=== PATIENT | male | born 1950 | race Caucasian/White ===

== ENCOUNTER → 2020-11-29 | Day surgery (SDC) | payer MEDICARE ==
[2020-11-23 11:59] LABS: BASOPHILS # (AUTO) 0.1 X10'3 (0-0.2); BASOPHILS % (AUTO) 0.8 % (0-1); EOSINOPHILS # (AUTO) 0.3 X10'3 (0-0.9); EOSINOPHILS % (AUTO) 3.7 % (0-6); LYMPHOCYTES % (AUTO) 24.9 % (21-51); MEAN CORPUSCULAR HEMOGLOBIN 30.2 PG (27.0-31.0); MEAN CORPUSCULAR HGB CONC 33.5 g/dL (33.0-36.5); MEAN CORPUSCULAR VOLUME 90.3 FL (78-98); MEAN PLATELET VOLUME 9.1 FL (7.4-10.4); MONOCYTES # (AUTO) 0.7 X10'3 (0-0.9); MONOCYTES % (AUTO) 8.9 % (2-12); NEUTROPHILS % (AUTO) 61.7 % (42-75); PRE OP HEMATOCRIT 41.9 % (42.0-52.0); PRE OP PLATELET COUNT 205 X10'3 (140-440); RED BLOOD COUNT 4.64 X10'6 (4.70-6.10); RED CELL DISTRIBUTION WIDTH 12.7 % (11.5-14.5)
[2020-11-23 12:09] LABS: ALBUMIN 3.3 G/DL (3.4-5.0); ALBUMIN/GLOBULIN RATIO 0.9 (1.1-1.5); ALKALINE PHOSPHATASE 85 IU/L (46-116); BLOOD UREA NITROGEN 12 MG/DL (7-18); BUN/CREATININE RATIO 12.8 (5.4-32.0); CALCIUM 8.2 MG/DL (8.5-10.1); CHLORIDE 102 MMOL/L (99-107); CREATININE 0.94 MG/DL (0.60-1.10); PRE OP ALT 25 U/L (30-65); PRE OP ANION GAP 6 (8-16); PRE OP AST 16 U/L (10-37); PRE OP BILIRUB, TOTAL 0.4 MG/DL (0.0-1.0); PRE OP GLUCOSE 101 MG/DL (70-104); PRE OP POTASSIUM 4.4 MMOL/L (3.4-5.1); PRE OP SODIUM 135 MMOL/L (135-145); TOTAL CARBON DIOXIDE 27.1 MMOL/L (24-32); TOTAL PROTEIN 6.8 G/DL (6.4-8.2); eGFR 80 ML/MIN
[~2020-11-29] VITALS: Ht 185.4 cm; Wt 157.1 kg
[2020-11-29] VITALS (9 sets, daily range): BP systolic 144–163; BP diastolic 70–88
[~2020-11-29] MED LIST: ACET-1025 PO; BETA1TAB19 PO; FLO0.4C; HYDROcodone/acetaminophen 10/325mg tab PO PRN; IBUP-75 PO; LIDOcaine 2% (20mg/ml) 5ml vial ONE; OMEP40CA21 PO; ROPIVAcaine 0.2% (10 MG/5 ML) BOLUS INJECTION INTERSCALE PRN; ROPIVAcaine 0.2%/PF PUMP/bolus 545 ML INTERSCALE SCH; ROPIVAcaine 0.5% (5mg/ml) 30ml vial ONE; ceFAZolin inj. 3,000 MG in normal saline 100ml IV soln 100 ML IV ONE; dexamethasone sod phosphate 4mg/ml inj. ONE; ePHEDrine 50MG/ML INJ. ONE; famotidine 20mg tablet PO ONE; fentaNYL/PF 50MCG/1 ML 2ML syringe IV PRN; fentaNYL/PF 50MCG/1 ML 2ML syringe ONE; hydrALAZINE 20mg/ml inj. IV PRN; labetalol 20mg/4ml (5mg/ml) syringe IV PRN; midazolam 1 mg/ML 2ml injection ONE; morphine 2 MG/ML inj. syringe IV PRN; morphine 4 MG/ML inj SYRINge IV PRN; ondansetron/PF 4mg/2ml inj IV PRN; ondansetron/PF 4mg/2ml inj ONE; propofol inj 20 ML IV ONE; ringers solution, lacted 1,000 ML IV SCH; sevoflurane 250ml liquid IH ONE; succinylcholine 20mg/ml inj IV ONE
--- NOTE | 2020-11-29 09:46 | NUR ---
Received from OR via [facility] IN STABLE CONDITION , accompanied by Anesthesiologist and AIRPLANE GASTANK LINER ASSEMBLER report given by AIRPLANE GASTANK LINER ASSEMBLER AND Anesthesiolgist. Addendum: 11/29/20 at 1025 by Gretta Alejandra RN Amended: Links added.
--- NOTE | 2020-11-29 11:16 | NUR ---
PATIENT DISCHARGED HOME FROM PACU IN STABLE CONDITION AFTER WRITTEN AND VERBAL DISCHARGE INSRUCTIONS GIVEN. PATIENT GAVE VERBAL UNDERSTANDING OF INSTRUCTIONS GIVEN. PATIENT LEFT FACILITY IN WHEELCHAIR WITH RN. Addendum: 11/29/20 at 1150 by Gretta Alejandra RN Amended: Links added.
== END | disposition home or self-care (01) ==
LOC: PAS 05:31
PROVIDERS: ATTEND Orthopaedic Surgery
DX: M75.122 Complete rotator cuff tear or rupture of left shoulder, not specified as traumatic (principal); S46.212A Strain of muscle, fascia and tendon of other parts of biceps, left arm, initial encounter; M75.52 Bursitis of left shoulder; G89.18 Other acute postprocedural pain; N40.0 Benign prostatic hyperplasia without lower urinary tract symptoms; K21.9 Gastro-esophageal reflux disease without esophagitis; E66.01 Morbid (severe) obesity due to excess calories; Z68.42 Body mass index [BMI] 45.0-49.9, adult; Z20.822 Contact with and (suspected) exposure to COVID-19; Z79.899 Other long term (current) drug therapy; Z87.891 Personal history of nicotine dependence; Z72.89 Other problems related to lifestyle; Z96.651 Presence of right artificial knee joint; Z98.890 Other specified postprocedural states; X58.XXXA Exposure to other specified factors, initial encounter; Y93.9 Activity, unspecified; Y92.89 Other specified places as the place of occurrence of the external cause; Y99.8 Other external cause status
CPT/HCPCS: 29826; 29827; 36415; 64416; 76937; 80053; 82948; 85025; C1713; J0330; J0690; J1100; J2001; J2250; J2405; J2704; J3010; J7120; U0003; U0005; Z7506; Z7508; Z7512; A4565; A4618; A6449; A7000; J2795

== ENCOUNTER 2024-08-12 09:43 | Day surgery (SDC) | payer MEDICARE ==
[2024-08-08 16:09] LABS: BASOPHILS % (AUTO) 0.5 % (0-1); EOSINOPHILS # (AUTO) 0.2 X10'3 (0-0.9); EOSINOPHILS % (AUTO) 2.1 % (0-6); HEMATOCRIT 36.3 % (42.0-52.0); HEMOGLOBIN 11.9 g/dl (14.0-17.9); LYMPHOCYTES # (AUTO) 1.4 X10'3 (1.1-4.8); MEAN CORPUSCULAR HEMOGLOBIN 28.1 PG (27.0-31.0); MEAN CORPUSCULAR HGB CONC 32.7 g/dL (33.0-36.5); MEAN CORPUSCULAR VOLUME 85.9 FL (78-98); MEAN PLATELET VOLUME 8.6 FL (7.4-10.4); MONOCYTES # (AUTO) 0.6 X10'3 (0-0.9); MONOCYTES % (AUTO) 6.9 % (2-12); NEUTROPHILS # (AUTO) 6.2 X10'3 (1.8-7.7); NEUTROPHILS % (AUTO) 73.5 % (42-75); PLATELET COUNT 240 X10'3 (140-440); RED BLOOD COUNT 4.23 X10'6 (4.70-6.10); WHITE BLOOD COUNT 8.4 X10'3 (4.5-11.0)
[2024-08-08 16:16] LABS: INR 1.1 INR; PROTHROMBIN TIME 10.8 SECONDS (9.0-12.0)
[2024-08-08 16:17] LABS: ALBUMIN 3.1 G/DL (3.4-5.0); ANION GAP 9 (8-16); BLOOD UREA NITROGEN 11 MG/DL (7-18); BUN/CREATININE RATIO 10.8 (10.0-20.0); CALCIUM 8.2 MG/DL (8.5-10.1); CHLORIDE 103 MMOL/L (99-107); CHOL/HDL RATIO 2.5 (0.00-4.99); CHOLESTEROL 141 MG/DL (0-200); CREATININE 1.02 MG/DL (0.60-1.10); GLUCOSE 103 MG/DL (70-104); HDL CHOLESTEROL 57 MG/DL (35-60); LDL CHOLESTEROL 67 MG/DL (50-100); POTASSIUM 4.2 MMOL/L (3.5-5.1); SODIUM 141 MMOL/L (135-145); TOTAL CARBON DIOXIDE 29.5 MMOL/L (24-32); TRIGLYCERIDES 31 MG/DL (20-135); eGFR 72 ML/MIN
[2024-08-08 16:27] LABS: APTT 31 SECONDS (22-32)
[~2024-08-12] VITALS: Ht 182.9 cm; Wt 130.5 kg
[~2024-08-12 09:43] MED LIST changes: -ACET-1025 PO; +ACET-3174 PO; +AMI200T PO; +APIX5TAB3 PO; +Benadryl; -FLO0.4C; +GABA300C PO; -HYDROcodone/acetaminophen 10/325mg tab PO PRN; -IBUP-75 PO; -LIDOcaine 2% (20mg/ml) 5ml vial ONE; -OMEP40CA21 PO; +PANT40TA54 PO; -ROPIVAcaine 0.2% (10 MG/5 ML) BOLUS INJECTION INTERSCALE PRN; -ROPIVAcaine 0.2%/PF PUMP/bolus 545 ML INTERSCALE SCH; -ROPIVAcaine 0.5% (5mg/ml) 30ml vial ONE; +TAMS-55 PO; -ceFAZolin inj. 3,000 MG in normal saline 100ml IV soln 100 ML IV ONE; -dexamethasone sod phosphate 4mg/ml inj. ONE; -ePHEDrine 50MG/ML INJ. ONE; -famotidine 20mg tablet PO ONE; -fentaNYL/PF 50MCG/1 ML 2ML syringe IV PRN; -fentaNYL/PF 50MCG/1 ML 2ML syringe ONE; -hydrALAZINE 20mg/ml inj. IV PRN; -labetalol 20mg/4ml (5mg/ml) syringe IV PRN; -midazolam 1 mg/ML 2ml injection ONE; -morphine 2 MG/ML inj. syringe IV PRN; -morphine 4 MG/ML inj SYRINge IV PRN; -ondansetron/PF 4mg/2ml inj IV PRN; -ondansetron/PF 4mg/2ml inj ONE; -propofol inj 20 ML IV ONE; -ringers solution, lacted 1,000 ML IV SCH; -sevoflurane 250ml liquid IH ONE; -succinylcholine 20mg/ml inj IV ONE
[2024-08-12] MEDS ORDERED: MIDAZolam 1mg/ml 10ml vial IV ONE (10:10)
[2024-08-12] MEDS ORDERED: normal saline 1000ml 1,000 ML IV SCH (10:10)
[2024-08-12] MEDS ORDERED: fentaNYL/PF 50MCG/1 ML 2ML syringe IV ONE (10:10)
[2024-08-12 10:15] VITALS: BP 134/70; PULSE 92; RESP 14; TEMP 98; O2SAT 98; O2SAT 99
[2024-08-12] MEDS ORDERED: amiodarone 50MG/ML inj IV ONE (11:59)
[2024-08-12] MEDS ORDERED: fentaNYL/PF 50MCG/1 ML 2ML syringe ONE (11:59)
[2024-08-12] MEDS ORDERED: midazolam 1 mg/ML 2ml injection ONE (11:59)
[2024-08-12] MEDS ORDERED: atropine 0.1mg/ml 10ml syringe ONE (12:00)
[2024-08-12 12:30] VITALS: BP 99/54; PULSE 57; RESP 15; O2SAT 98
--- NOTE | 2024-08-12 12:38 | ELECTROCARDIOGRAPH REPORT ---
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 WENDY Turcios Measurements Intervals [place] Rate: 64 P: 70 RI: 206 QRS: 55 QRSD: 109 T: 12 QT: 439 QTc: 453 Interpretive Statements Atrial-paced complexes Borderline low voltage, extremity leads Electronically Signed On 08-15-2024 19:12:[address] WENDY Turcios Please click the below link to view image of tracing.
[2024-08-12 12:45] VITALS: BP 98/55; PULSE 60; RESP 14; O2SAT 97
[2024-08-12 13:00] VITALS: BP 109/60; PULSE 67; RESP 14; O2SAT 98
[2024-08-12 13:15] VITALS: BP 107/54; PULSE 63; RESP 15; O2SAT 99
--- NOTE | 2024-08-12 15:00 | PROCEDURE NOTE CC ---
Procedure Note Providers to CC CC: PRADEEP ROY MD ~ Description Planned Procedure Cardioversion Indications Symptomatic Atrial Fibrillation Post Operative Dx: Same Type of Anesthesia Moderate Sedation. Description It was confirmed that patient has been taking oral anticoagulation without interruption for at least 4 weeks. The appropriate time-out procedure was performed including proper identification of the patient, physician, procedure, documentation, and there were no safety issues identified. The patient participated actively in this. After sedation was achieved, the patient was placed in the supine position and hands free patches were placed on their chest in the AP-lateral position. 1 synchronized cardioversion was provided at 200 Joules with conversion to normal sinus rhythm. This was confirmed on EKG. Complication: None The patient tolerated the procedure well without complications. ERIN ROY MD Aug 12, 2024 15:00
== END 2024-08-12 13:20 | disposition home or self-care (01) ==
LOC: SSTAY O 09:43
PROVIDERS: ATTEND Student in an Organized Health Care Education/Training Program
DX: I48.91 Unspecified atrial fibrillation (principal); K21.9 Gastro-esophageal reflux disease without esophagitis; M19.90 Unspecified osteoarthritis, unspecified site; Z88.8 Allergy status to other drugs, medicaments and biological substances; Z79.899 Other long term (current) drug therapy; Z98.890 Other specified postprocedural states
CPT/HCPCS: 36415; 80048; 80061; 83695; 85025; 85610; 85730; 92960; 93005; J2250; J3010; J7030; 99152; J0282; J0461